=== PATIENT | female | born 1960 | race Caucasian/White ===

== ENCOUNTER → 2017-01-26 | Outpatient (CLI) | payer OTHER ==
[~2017-01-26] MED LIST: ACYCLOVIR PO; ALBUTEROL17 GM INH; AMITZA; BACITRACIN15 GM TOP; CARAFATE PO; CERTAGEN PO; COD LIVER OIL; COGENTIN PO; CREON 101 CAP PO; CREON DR 24,001 EACH PO; CYMBALTA PO; DARVOCET-N 1001 TAB PO; DIAZEPAM PO; ELMIRON100 MG PO; ESTROGEN PATCH; FENTANYL1 PATCH .7 TOP; FLAX SEED OIL1000 MG PO; FLEXERIL PO; FLEXERIL10 M1 PO; FLONASE16 GM; LEVOTHROID50 MCG PO; LEXAPRO PO; LEXAPRO20 MG PO; MAGNESIUM; MELATONIN3 MG PO; MINERALS; MOBIC PO; NEURONTIN100 MG PO; NEXIUM PO; PANCREATIC ENZYMES; PHENERGAN W/CO120 ML PO; PREMARIN PO; PROAIR HFA8.5 GM IH; PROMETRIUM PO; PYRIDIUM100 MG PO; QVAR7.3 G1 IH; ROBAXIN; SYNTHROID PO; SYNTHROID75 MCG; THYROID PO; TOPROL XL PO; ULTRAM PO; VALIUM10 MG PO; VIT E PO; VITAMINS; VOLTAREN75 MG PO; ZANAFLEX PO; ZANAFLEX4 M1 PO; ZOFRAN PO; ZYRTEC PO; ZYRTEC10 M2 PO; [UNRECOGNIZED DRUG - OTHER]; [UNRECOGNIZED DRUG - OTHER] INH; [UNRECOGNIZED DRUG - OTHER] PO; [UNRECOGNIZED DRUG - OTHER] PO
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
== END | disposition home or self-care (01) ==
LOC: SMRI 16:00
DX: M50.122 Cervical disc disorder at C5-C6 level with radiculopathy (principal); M40.292 Other kyphosis, cervical region; M48.02 Spinal stenosis, cervical region; M47.22 Other spondylosis with radiculopathy, cervical region
CPT/HCPCS: 72141